=== PATIENT | male | born 1975 | race Caucasian/White ===

== ENCOUNTER 2017-05-18 15:57 | Emergency (ER) | payer OTHER ==
[~2017-05-18] VITALS: Ht 198.1 cm; Wt 106.6 kg
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
--- OUTSIDE RECORDS SUMMARY | ~2017-05-18 | XMS ---
Demographics + + + | Address | [address] | | | [place] [address] | + + + | Preferred Language | Unknown | + + + | Marital Status | Unknown | + + + | Latter-Day Affiliation | Unknown | + + + | Race | Unknown | + + + | Ethnic Group | Unknown | + + + Author + + + | Author | [facility] | + + + | Organization | [facility] | + + + | Address | [address] | | | [place] [address] | + + + | Phone | | + + + Care Team Providers + + + + | Care In Shop Service Technician Name | Role | Phone | + + + + Unavailable | Unavailable | + + + + PROBLEMS + + + + + + + + | Type | Condition | ICD9-CM | [id number] | Onset | Condition | SNOMED | | | | Code | Code | Dates | Status | Code | + + + + + + + + | Problem | Anxiety | 300.00 | | | Active | 08383981 | + + + + + + + + | Problem | Carpal | G56.00 | | | Active | 30208552 | | | tunnel | | | | | | | | syndrome | | | | | | + + + + + + + + | Problem | Hypertensi | | I10 | | Active | 06455730 | | | on | | | | | | + + + + + + + + | Assessment | Radiculopa | | M54.16 | 09 February, | Active | [id number] | | | thy, | | | 2016 | | | | | lumbar | | | | | | | | region | | | | | | + + + + + + + + | Assessment | Radiculopa | | M54.12 | 09 February, | Active | 47116515 | | | thy, | | | 2017 | | | | | cervical | | | | | | | | region | | | | | | + + + + + + + + | Problem | Onychomyco | 110.1 | | | Active | 140392023 | | | sis | | | | | | + + + + + + + + | Problem | Carpal | 354.0 | | | Active | [id number] | | | tunnel | | | | | [address] | | | syndrome | | | | | | | | of right | | | | | | | | wrist | | | | | | + + + + + + + + | Problem | Anxiety | | F41.9 | | Active | 32004992 | + + + + + + + + | Problem | Left | M54.12 | | | Active | 94243229 | | | cervical | | | | | | | | radiculopa | | | | | | | | thy | | | | | | + + + + + + + + | Problem | Tobacco | | Z72.0 | | Active | 910155746 | | | use | | | | | | + + + + + + + + | Problem | Contact | L25.9 | | | Active | 54269603 | | | dermatitis | | | | | | + + + + + + + + | Problem | Left | M54.16 | | | Active | [id number] | | | lumbar | | | [...] | + + + + +---------+ | NItaloKNikkieA. | Unknown | Non Drug | February, | Unknown | | | | Allergy | | | + + + + +---------+ SOCIAL HISTORY No smoking Hx information available PLAN OF CARE VITAL SIGNS + + + + | Height | 78 in | 2017-02-09 | + + + + | Weight | 246.4 lbs | 2017-02-09 | + + + + | BMI | 28.47 kg/m2 | 2017-02-09 | + + + + | Temperature | 99.2 degrees Fahrenheit | 2017-02-09 | + + + + | Heart Rate | 111 /min | 2017-02-09 | + + + + | Blood pressure systolic | 149 mm Hg | 2017-02-09 | + + + + | Blood pressure diastolic | 103 mm Hg | 2017-02-09 | + + + + MEDICATIONS + [...] | 2 cap(s) | 8h | 18 Feb, | | 30 | Active | | in 600 | tid | | | 2016 | | day(s) | | | MG | | | | | | | | + + + + + + + +--------+ | Diclofen | Orally | 1 tablet | 12h | | 2 Nov, | 30 | Active | | ac | Twice a | | | | 2016 | day(s) | | | Sodium | day | | | | | | | | 75 mg | | | | | | | | + + + + + + + +--------+ | Lisinopr | Orally | 1 tablet | 24h | 28 Bipin, | | 30 | Active | | il 20 MG | Once a | | | 2015 | | day(s) | | | | [...] + + | Est Level IV | February 09, 2017 | | | | Extended | | | | + + + + + | [facility] MED/CURRENT | February 09, 2017 | | | | MED MERGE | | | | + + + + + | DOC MEDS VERIFIED | February 09, 2017 | | | | W/PT OR RE | | | | + + + + + IMMUNIZATIONS No Known Immunizations"
[~2017-05-18 15:57] MED LIST: BUPROPION HCL100 M1 PO; BUPROPION XL150 MG PO; GABAPENTIN300 MG PO; ULTRAM50 MG PO
[2017-05-18] MEDS ORDERED: ULTRAM50 MG PO (18:18)
== END 2017-05-18 18:42 | disposition home or self-care (01) ==
LOC: ED 15:57
DX: M50.00 Cervical disc disorder with myelopathy, unspecified cervical region (principal); F17.200 Nicotine dependence, unspecified, uncomplicated; V89.2XXA Person injured in unspecified motor-vehicle accident, traffic, initial encounter; Z79.899 Other long term (current) drug therapy
CPT/HCPCS: 72125; 99284